=== PATIENT | male | born 1980 | race Caucasian/White ===

== ENCOUNTER 2020-01-18 09:09 | Emergency (ER) | payer BC, SELFPAY ==
[2020-01-18 09:22] VITALS: BP 119/76; PULSE 71; RESP 17; TEMP 36.7; O2SAT 96; BMI 25.0
--- NOTE | 2020-01-18 09:29 | W.ED.FEVER ---
HPI - Fever General: Chief Complaint: Fever Stated Complaint: FEVER L0IGIER, COVID NEG Time Seen by Provider: 01/18/20 09:18 History of Present Illness: HPI Narrative: Patient is a 39-year-old male who comes to the ED with fever. Patient was seen at [facility] last and they tested him for COVID-19 and he found out today and the results were negative. Patient says he has had of fever for the last 2 weeks. He has been taking his temperature at home and the highest it is gotten as 99.8F. He has not taken any Tylenol or ibuprofen to treat fever. For the past 3 days patient does describe having fatigue and lack of appetite. He has a chronic smoker's cough and says there is no acute change in his cough. he says he has had a runny nose and mild right ear pain, but denies sore throat, nausea, vomiting, abdominal pain, diarrhea, constipation, blood in the stool, dysuria and hematuria. Associated symptoms: Deny abdominal pain, flank pain, chills, chest pain, diarrhea, dysuria, headache(s), nasal congestion, nausea or vomiting Review of Systems Const: Reports: fever(s), change in appetite (decreased) and fatigue; Denies: chills Eyes: Denies: change in vision or eye discomfort ENMT: Reports: nasal discharge; Denies: throat pain, odynophagia or nasal congestion Card: Denies: chest pain, palpitations, edema, swelling of feet/ankles, dyspnea on exertion or orthopnea Resp: Denies: dyspnea, productive cough or non-productive cough GI: Denies: abdominal pain, nausea, vomiting, diarrhea, constipation or hematochezia : Denies: flank pain, difficulty urinating, dysuria or hematuria Musc: Denies: neck pain, back pain or extremity swelling Skin/Breast: Denies: rash or new lesions Neuro: Denies: headache(s), numbness in extremities or weakness in extremities PFS ED PFSH: Social History Smoking and tobacco status: current every day smoker Physical Exam Const: COMMON NORMALS: no acute distress, patient oriented x3, healthy appearing and alert GENERAL APPEARANCE: cooperative and comfortable HENMT: COMMON NORMALS: normocephalic HEAD & SCALP: normocephalic EXTERNAL AUDITORY CANAL: Abnormal EAC present EAC laterality: right Details: cerumen impaction, erythema, edema and EAC tenderness TYMPANIC MEMBRANE: TM abnormal TM laterality: bilateral bulging, erythematous and with fluid behind the TM (purulent fluid ) MOUTH: Normal oral and palatal mucosa present THROAT: posterior oropharynx normal and uvula midline Eye: COMMON NORMALS: Equal, round and reactive pupils present PUPIL: Yes Equal, round and reactive pupils present Neck/C-Spine: COMMON NORMALS: supple GENERAL: Yes normal visual inspection Resp: COMMON NORMALS: normal respiratory effort, No retractions, No use of accessory muscles and clear to auscultation bilaterally AUSCULTATION: clear to auscultation bilaterally Cardio: COMMON NORMALS: regular rate, regular rhythm, S1 normal heart sound present, S2 normal heart sound present, No gallops present (Cardio), No clicks present (Cardio), No murmurs present (Cardio) and Peripheral pulses 2+ throughout RATE: regular rate RHYTHM: regular rhythm HEART SOUNDS: S1 normal heart sound present and S2 normal heart sound present PERIPHERAL PULSES: Peripheral pulses 2+ throughout GI: COMMON NORMALS: Normal to inspection, nondistended, normoactive bowel sounds present, Soft to palpation, non-tender and no masses PALPATION: Yes Soft to palpation : COMMON NORMALS: Yes no CVA tenderness BLADDER/KIDNEY EXAM: Yes no CVA tenderness Back/Pelvis: COMMON NORMALS: no CVA tenderness Extremity: COMMON NORMALS: normal to inspection and no pedal edema Neuro: COMMON NORMALS: patient oriented x3 and moves all extremities SENSORIUM/ORIENTATION: Yes alert Skin: COMMON NORMALS: no rashes or lesions noted GENERAL SKIN EXAM: no rashes or lesions noted and dry skin Course Vital Signs: Vital signs: Vital Signs Temperature 98.1 F 01/18/20 09:22 Pulse Rate 67 01/18/20 14:10 Respiratory Rate 18 01/18/20 14:10 Blood Pressure 111/69 01/18/20 11:16 Pulse Oximetry 98 01/18/20 14:10 MDM - Fever MDM Narrative: Medical decision making narrative: Patient is a 3-year-old male who comes to the ED with fever, fatigue and loss of appetite. Fever started 2 weeks ago and patient recently tested negative for COVID-19. Physical exam normal except patient had extensive cerumen in both ears which obstructed viewing of the tympanic membrane. I had the nurse clean and irrigate patient's ears. After nurse cleaned ears I reexamined them and saw some external auditory canal erythema and tenderness in the right ear. Tympanic membranes had some erythema bulging and purulent fluid behind membrane. White blood cells 17.5. Chest x-ray was performed and showed no evidence of pneumonia. A CT of the abdomen was performed to rule out possible appendicitis due to loss of appetite and elevated white blood cell count. CT of the abdomen showed no acute findings, except some gallstones. Patient not showing any signs or symptoms of biliary colic and has no abdominal tenderness. Patient diagnosed with acute otitis media and otitis externa and sent home with a prescription for Augmentin and Cipro ear drops. Patient also stated he wanted a referral to a PCP. I placed a order with case management for patient to be set up with PCP. He can come back to the ED for reevaluation if symptoms worsen. Patient understood and agreed with plan. Lab Data: Attestation: I reviewed the patient's lab results. Labs: Lab Results 01/18/20 01/18/20 01/18/20 Range/Units 09:30 09:45 09:45 WBC 17.5 H (4.0-10.0) 10^3/ uL RBC 5.37 H (4.1-5.3) 10^6/u L Hgb 16.9 H (11.7-16.6) g/dL Hct 49.6 (42.0-52.0) % MCV 92.4 (80-94) fL MCH 31.5 (28.0-34.0) pg MCHC 34.1 (30.0-36.0) g/dL RDW 13.1 (12.1-15.1) % Plt Count 244 (130-400) 10^3/c mm MPV 9.7 (7.4-10.4) fL Neut % (Auto) 71.2 % Lymph % (Auto) 15.6 % [place] % (Auto) 8.8 % Eos % (Auto) 3.7 % Baso % (Auto) 0.4 % Neut # (Auto) 12.5 H (1.8-7.7) 10^3/u L Lymph # (Auto) 2.7 (0.8-4.8) 10^3/u L [place] # (Auto) 1.5 H (0.2-0.9) 10^3/u L Eos # (Auto) 0.7 (0.0-0.8) 10^3/u L Baso # (Auto) 0.1 (0.0-0.1) 10^3/u L Nucleated RBC % (a uto) 0 % Nucleated RBCs # 0.0 /100WBC Sodium 138 (136-145) mmol/L Potassium 4.2 (3.5-5.1) mmol/L Chloride 103 (98-107) mmol/L Carbon Dioxide 25 (22-29) mmol/L Anion Gap 14.2 (5-19) BUN 16 (6-20) mg/dL Creatinine 0.9 (0.7-1.2) mg/dL GFR Calculation 93.5 (90-130) mL/min Glucose 101 (65-115) mg/dL Calculated Osmolal ity 282 L (285-295) mOsm/k g Calcium 9.5 (8.5-10.5) mg/dL Total Bilirubin 0.2 (0.15-1.2) mg/dL AST 31 (0-40) U/L ALT 66 H (0-41) U/L Alkaline Phosphata se 84 (40-130) IU/L Total Protein 6.9 (6.6-8.7) g/dL Albumin 4.6 (3.5-5.2) g/dL Globulin 2.3 (1.3-4.6) g/dL Urine Color Yellow (Yellow) Urine Appearance Clear (CLEAR) Urine pH 5 (5-7) Ur Specific Gravit y 1.025 (1.005-1.030) Urine Protein Neg (Negative) Urine Glucose (UA) Norm (Normal) Urine Ketones Negative (Negative) Urine Blood Neg (Negative) Urine Nitrate Negative (Negative) Urine Bilirubin Neg (NEGATIVE) Urine Urobilinogen Norm (Negative) mg/dL Ur Leukocyte Danay ase Negative (Negative) Urine RBC None (0-2) /hpf Urine WBC 0-4 H (0-5) /hpf Ur Squamous Epith Cells None (0-5) Urine Bacteria Trace (NONE) Urine Mucus Trace Imaging Data^: CXR: Attestation: I personally reviewed and interpreted this imaging study as follows: Radiologist's impression: [facility] [address] [place] [address] XRay Report Signed Patient: Ernst Crum Jr Unit #: [id number] : 1980 Age/Sex: 39 / M ADM Date: 01/18/20 Loc: ER Room/Bed: Attending Dr: Ordering Provider/Ordering MD: Angel Lopez Date of Service: 01/18/20 Procedure(s): XR chest 1V portable [id number] Accession Number(s): [id number] Report Number: [id number] WS: [id number] XR chest 1V portable [id number] REASON FOR EXAM: fever FINDINGS: Hyper aerated lungs are seen with decreased vascularity. There is lung bates show no pneumonia, pleural effusion, pulmonary edema, or mass effect. The heart was not enlarged. The hilum and apices are normal. There is small cyst seen in the apex of the right lung. XR/XR chest 1V portable [id number] IMPRESSION: Chronic obstructive pulmonary disease Small cyst of the apex of the right lung. There was no evidence of pneumonia. Dictated By: Mehrdad Angela DO Signed By: Mehrdad Angela DO Signed Date/Time: 01/18/20949 DD/ 8 CT Abd/Pel: Attestation: I personally reviewed and interpreted this imaging study as follows: Radiologist's impression: [address] [place] [address] CT Scan Report Signed Patient: Ernst Crum Jr Unit #: [id number] : 1980 Age/Sex: 39 / M ADM Date: 01/18/20 Loc: ER Room/Bed: Attending Dr: Ordering Provider/Ordering MD: Angel Lopez Date of Service: 01/18/20 Procedure(s): CT abdomen pelvis w con* [id number] Accession Number(s): [id number] Report Number: [id number] WS: [id number] CT abdomen pelvis w con* [id number] REASON FOR EXAM: fever, loss of appetite and Elevated WBC IV CONTRAST ADMINISTERED: Omnipaque 300 95 mL TOTAL EXAM DLP: 915.[address] scans at [facility] use at least one of these dose optimization techniques: automated exposure control; mA and/or kV adjustment per patient size (includes targeted exams where dose is matched to clinical indication); or iterative reconstruction. FINDINGS: The lower lung bates were normal as well as the mediastinum. No hiatal hernias. The liver showed normal appearance no infiltrations. The gallbladder is contracted and appears to contain multiple stones. Comparisons were made to CT of January 30, 2010. The stomach, adrenal glands, pancreas, were all normal. Both kidneys show normal excretory changes no obstruction no masses. The appendix area was normal. The small bowel showed no ileus formation. The descending colon was normal. The urinary bladder show normal appearance of both ureters entering the bladder were normal bladder The gallbladder was normal in size and configuration is seen. The rectum was normal. No hernias are seen. The bony pelvis show no abnormalities. The lumbar spine show normal appearance. [place] no retroperitoneal lymphadenopathy is seen. CT/CT abdomen pelvis w con* [id number] IMPRESSION: Suspect multiple cholelithiasis. Dictated By: Mehrdad Angela DO Signed By: Mehrdad Angela DO Signed Date/Time: 01/18/20 1151 DD/ 1146 Discharge Plan Discharge Patient Disposition: Home, Self-Care Clinical Impression: Otitis media Qualifiers: Otitis media type: suppurative Chronicity: acute Laterality: bilateral Recurrence: non-recurrent Spontaneous tympanic membrane rupture: without spontaneous rupture Qualified Code(s): H66.003 - Acute suppurative otitis media without spontaneous rupture of ear drum, bilateral Otitis externa Qualifiers: Otitis externa type: other infective Chronicity: acute Laterality: right Qualified Code(s): H60.391 - Other infective otitis externa, right ear Condition: Stable Prescriptions: New amoxicillin-pot clavulanate 1,000-62.5 mg tablet extended release 12 hr 1 tab PO BID 10 Days Qty: 20 RF: 0 Cipro HC 0.2-1 % drops,suspension 3 drp EAR-BOTH BID 7 Days Qty: 10 RF: 0 No Action No Known Home Medications RF: 0 Discharge Orders: Discharge Order (Routine); Ordered 01/18/20 Ordered By: Angel Lopez Referrals: Pamela Longo APRN [Nurse Practitioner] - 01/19/20 9:00 am Leobardo Mckeon MD [Primary Care Provider] - Discharge Diet: Regular Discharge Activity: Resume usual activity Patient Instructions: Otitis Externa - Adult, Otitis Media - Adult Activity Restrictions/Additional Instructions: Case management should be contacting you in the next several days to set up an appointment with the PCP. Take full course of antibiotics as prescribed. For the antibiotic eardrops she will do 3 drops in the right ear twice daily for 7 days. Take Tylenol or ibuprofen for any pain or fevers. Drink plenty of fluids and stay hydrated. Discharge Date/Time: 01/18/20 14:11 Coding Level of Care Code ED Network Diagnostic Support Specialist for Jeremiah Fwd Exam Comprehensive
--- NOTE | 2020-01-18 09:30 | XR_ITS ---
WS: [id number] XR chest 1V portable [id number] REASON FOR EXAM: fever FINDINGS: Hyper aerated lungs are seen with decreased vascularity. There is lung bates show no pneumonia, pleural effusion, pulmonary edema, or mass effect. The heart was not enlarged. The hilum and apices are normal. There is small cyst seen in the apex of the right lung. XR/XR chest 1V portable [id number] IMPRESSION: Chronic obstructive pulmonary disease Small cyst of the apex of the right lung. There was no evidence of pneumonia.
[2020-01-18 09:56] VITALS: O2SAT 98
[2020-01-18 09:56] LABS: Basophils # 0.1 10^3/uL (0.0-0.1); Basophils % 0.4 %; Eosinophils # 0.7 10^3/uL (0.0-0.8); Eosinophils % 3.7 %; Hematocrit 49.6 % (42.0-52.0); Hemoglobin 16.9 g/dL (11.7-16.6); Lymphocytes # 2.7 10^3/uL (0.8-4.8); Lymphocytes % 15.6 %; Mean Corpuscular HGB Conc 34.1 g/dL (30.0-36.0); Mean Corpuscular Hemoglobin 31.5 pg (28.0-34.0); Mean Corpuscular Volume 92.4 fL (80-94); Mean Platelet Volume 9.7 fL (7.4-10.4); Monocytes # 1.5 10^3/uL (0.2-0.9); Monocytes % 8.8 %; Neutrophils # 12.5 10^3/uL (1.8-7.7); Neutrophils % 71.2 %; Nucleated Red Blood Cells % 0 %; Platelet Count 244 10^3/cmm (130-400); Red Blood Count 5.37 10^6/uL (4.1-5.3); Red Cell Distribution Width 13.1 % (12.1-15.1); White Blood Count 17.5 10^3/uL (4.0-10.0)
[2020-01-18 09:56] LABS: Bilirubin Urine Neg (NEGATIVE); Blood Urine Neg (Negative); Glucose Urine UA Norm (Normal); Ketones Urine Negative (Negative); Leukocyte Esterase Urine Negative (Negative); Nitrate Urine Negative (Negative); Protein Urine Neg (Negative); Specific Gravity, Urine 1.025 (1.005-1.030); Urine Appearance Clear (CLEAR); Urine Color Yellow (Yellow); Urobilinogen Urine Norm (Negative); pH Urine 5 (5-7)
[2020-01-18 09:57] LABS: Add Urine Culture? No; Bacteria Urine TRACE; Mucus Urine TRACE; WBC Urine 0-4 /hpf (0-5)
[2020-01-18 10:12] LABS: Alanine Aminotransferase 66 U/L (0-41); Albumin Level 4.6 g/dL (3.5-5.2); Alkaline Phosphatase 84 IU/L (40-130); Anion Gap 14.2 (5-19); Aspartate Amino Transferase 31 U/L (0-40); Blood Urea Nitrogen 16 mg/dL (6-20); Calcium 9.5 mg/dL (8.5-10.5); Carbon Dioxide 25 mmol/L (22-29); Chloride 103 mmol/L (98-107); Globulin 2.3 g/dL (1.3-4.6); Glomerular Filtration Rate 93.5 mL/min (90-130); Glucose 101 mg/dL (65-115); Osmolality Calculated 282 mOsm/kg (285-295); Potassium 4.2 mmol/L (3.5-5.1); Sodium 138 mmol/L (136-145); Total Bilirubin 0.2 mg/dL (0.15-1.2); Total Protein 6.9 g/dL (6.6-8.7)
--- NOTE | 2020-01-18 10:58 | CT_ITS ---
WS: [id number] CT abdomen pelvis w con* [id number] REASON FOR EXAM: fever, loss of appetite and Elevated WBC IV CONTRAST ADMINISTERED: Omnipaque 300 95 mL TOTAL EXAM DLP: 915.[address] scans at [facility] use at least one of these dose optimization techniques: automat ed exposure control; mA and/or kV adjustment per patient size (includes targeted exams where dose is matched to clinical indication); or iterative reconstruction. FINDINGS: The lower lung bates were normal as well as the mediastinum. No hiatal hernias. The liver showed normal appearance no infiltrations. The gallbladder is contracted and appears to contain multiple stones. Comparisons were made to CT of January 30, 2010. The stomach, adrenal glands, pancreas, were all normal. Both kidneys show normal excretory changes no obstruction no masses. The appendix area was normal. The small bowel showed no ileus formation. The descending colon was normal. The urinary bladder show normal appearance of both ureters entering the bladder were normal bladder The gallbladder was normal in size and configuration is seen. The rectum was normal. No hernias are seen. The bony pelvis show no abnormalities. The lumbar spine show normal appearance. [place] no retroperitoneal lymphadenopathy is seen. CT/CT abdomen pelvis w con* [id number] IMPRESSION: Suspect multiple cholelithiasis.
[2020-01-18 11:16] VITALS: BP 111/69; PULSE 61; RESP 15; O2SAT 97
[2020-01-18] MEDS: sodium chloride 0.9% 1,000 ML 999 ML IV (11:16)
[2020-01-18] MEDS: iohexol 300 mg/mL 100 mL Btl IV (11:32)
--- NOTE | 2020-01-18 13:51 | PC.NURSE ---
patients ears irrigated and cleaned out,patient tolerated it with some resistance
--- NOTE | 2020-01-18 13:57 | DCPLANNER ---
manager of administration was asked to speak with patient about getting established with a primary care physician. manager of administration spoke with patient, told patient that sample case porter could get patient established with SPORTS TEACHER, Rozina Longo at [facility]. manager of administration called the clinic, spoke with Talia, a follow up appointment was scheduled for Sunday, January 19, 2020 at 9:00 with SPORTS TEACHER Rozina Longo. manager of administration informed patient and ED physician of the scheduled appointment.
[2020-01-18] MEDS: amoxicillin-clav 875-125 mg Tablet 1 TAB PO (13:58)
[2020-01-18 14:10] VITALS: PULSE 67; RESP 18; O2SAT 98
--- NOTE | 2020-01-29 14:08 | DCPLANNER ---
Patient had an appointment scheduled for 01.19.20 with DYE HOUSE HELPER, Rozina Longo. Patient did attend appointment.
== END 2020-01-18 14:11 | disposition home or self-care (01) ==
PROVIDERS: Emergency Provider Physician Assistant; PCP Urology
DX: H66.003 Acute suppurative otitis media without spontaneous rupture of ear drum, bilateral (principal); H60.391 Other infective otitis externa, right ear; F17.210 Nicotine dependence, cigarettes, uncomplicated
CPT/HCPCS: 12345; 36415; 71045; 74177; 80053; 81001; 85025; 87040; 96360; 99283; 99284; J7030; Q9967

== ENCOUNTER 2025-02-16 07:16 | Emergency (ER) | payer SELFPAY ==
[2025-02-16 07:26] VITALS: BP 142/89; PULSE 72; RESP 18; TEMP 36.7; O2SAT 96; BMI 28.7
--- OUTSIDE RECORDS SUMMARY | 2025-02-16 07:26 | XMS_ITS | Encounter Summary ---
Author Organization [facility] Address [address] [place] [address] Care Team Providers Care Outbound Telemarketing Representative Name Role Phone Rolando Antoine MD Primary Care Provider [phone] [phone] Encounter Details Date Type Department Care Team (Late st Contact Info) Description 03/06/2005 Outpatient Historical [facility] [address] 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 Gender Identity Not on file Sexual Orientation Not on file documented as of this encounter Plan of Treatment Not on file documented as of this encounter Visit Diagnoses Not on filedocumented in this encounter Additional Health Concerns Infection Onset Date Last Indicated Resolved Time R/O COVID-19 01/29/2020 01/29/2020 01/31/2020 2:31 AM CDT documented as of this encounter Care Teams Outbound Telemarketing Representative Relationship Specialty Start Date End Date Rolando Antoine MD [address] [facility] [address] [place] [id number] PCP - General Family Practice 01/29/20 documented as of this encounter
--- OUTSIDE RECORDS SUMMARY | 2025-02-16 07:26 | XMS_ITS | Encounter Summary ---
[facility] Organization [facility] Address [address] [place] [address] Care Team Providers Care Jackerman Name Role Phone Rolando Antoine MD Primary Care Provider [phone] Encounter Details Date Type Department Care Team (Latest Contact Info) Description 12/26/2004 Outpatient Historical [facility] [address] 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 Gender Identity Not on file Sexual Orientation Not on file documented as of this encounter Plan of Treatment Not on file documented as of this encounter Visit Diagnoses Diagnosis Pain in joint, pelvic region and thigh- Primary documented in this encounter Additional Health Concerns Infection Onset Date Last Indicated Resolved Time R/O COVID-19 01/29/2020 01/29/2020 01/31/2020 2:31 AM CDT documented as of this encounter Care Teams Jackerman Relationship Specialty Start Date End Date Rolando Antoine MD [address] [facility] [address] [place] [address] PCP - General Family Practice 01/29/20 documented as of this encounter
--- OUTSIDE RECORDS SUMMARY | 2025-02-16 07:26 | XMS_ITS | Clinical Summary ---
Author Organization [facility] Address [address] [place] [address] Care Team Providers Care Associate Dean Of Women Name Role Phone Rolando Antoine MD Primary Care Provider [phone] [phone] Allergies Active Allergy Reactions Criticality Noted Date Comments Iodine Nausea and Vomiting Low 01/28/2020 Morphine Other (See Comments) 01/28/2020 Agitation, mood swings. Medications albuterol sulfate 90 mcg/Actuation inhalerIndicati ons:Simple chronic bronchitis (CMS/HCC) Take 2 Puffs by inhalation every 6 hours as needed for Shortness of Breath or Wheezing. 6.7 Gram 11 1 Active omeprazole (PriLOSEC) 40 mg Capsule, Delayed Release(E.C.) Take 1 Capsule (40 mg) by mouth daily. 30 Capsule 11 1 Active promethazine (PHENERGAN) 25 mg tablet Take 0.5-1 Tablets (12.5-25 mg) by mouth every 6 hours as needed for Nausea/Emesis. 30 Tablet 11 1 Active sucralfate (CARAFATE) 1 gram tablet Take 1 Tablet (1 Gram) by mouth 2 times daily. 60 Tablet 11 1 Active Active Problems Problem Noted Date Diagnosed Date Cyclical vomiting 04/13/2021 Esophagitis 02/10/2021 Chronic periodontal disease 11/08/2020 Calculus of gallbladder with out cholecystitis without obstruction 11/08/2020 Opacity of lung on imaging study 11/08/2020 Simple chronic bronchitis 09/13/2020 Fever of unknown origin (FUO) 03/31/2020 Tobacco use 03/21/2020 Resolved Problems Problem Noted Date Diagnosed Date Resolved Date Abnormal chest CT 03/31/2020 11/08/2020 Family History Medical History Relation Name Comments No Known Problems Father Lung Cancer Mother Colon Cancer Neg Hx Relation Name Status Comments Father Mother Social History Tobacco Use Types Packs/Day Years Used Date Smoking Tobacco: Every Day Cigarettes Smokeless Tobacco: Never Alcohol Use Standard Drinks/Week Comments Never 0 (1 standard drink = 0.6 oz pur e alcohol) Sex and Gender Information Value Date Recorded Sex Assigned at Not on file Legal Sex Male 3:20 PM [employer] Gender Identity Not on file Sexual Orientation Not on file Last Filed Vital Signs Vital Sign Reading Time Taken Comments Blood Pressure 124/74 04/13/2021 8:37 AM CDT Pulse 96 04/13/2021 8:37 AM CDT Temperature 37.1 C (98.8 F) 04/13/2021 8:37 AM CDT Respiratory Rate 16 04/13/2021 8:37 AM CDT Oxygen Saturation 94% 04/13/2021 8:37 AM CDT Inhaled Oxygen Concentration - - Weight 99.3 kg (219 lb) 04/13/2021 8:37 AM CDT Height 190.5 cm (6' 3 ) 04/13/2021 8:37 AM CDT Body Mass Index 27.37 04/13/2021 8:37 AM CDT Plan of Treatment Health Maintenance Due Date Last Done Comments DTAP/TDAP/TD VACCINES (1 - Tdap) 1998 HEPATITIS B VACCINES (1 of 3 - 19+ 3-dose series) 1998 COLORECTAL SCREENING 2024 Colorectal Cancer Screening 2024 FIT-DNA Q 3 years 2024 FIT/FOBT Q 1 year 2024 Flex Sig/CT Colonography Q 5 years 2024 INFLUENZA VACCINE (#1) 2025 , 09/13/2020 HPV VACCINES Aged Out No longer eligi ble based on patient's age to complete this topic Advance Directives For more information, please contact: [phone] * Full Code (Latest Code Status on File) Date Activated Date Inactivated Comments 03/07/2021 12:19 PM 03/07/2021 3:33 PM Care Teams Associate Dean Of Women Relationship Specialty Start Date End Date Rolando Antoine MD [address] [address] PCP - General Family Practice 01/29/20
--- OUTSIDE RECORDS SUMMARY | 2025-02-16 07:26 | XMS_ITS | Encounter Summary ---
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 Gender Identity Not on file Sexual Orientation Not on file documented as of this encounter Plan of Treatment Not on file documented as of this encounter Visit Diagnoses Not on filedocumented in this encounter Additional Health Concerns Infection Onset Date Last Indicated Resolved Time R/O COVID-19 01/29/2020 01/29/2020 01/31/2020 2:31 AM CDT documented as of this encounter Care Teams Tamping Machine Operator Road Forms Relationship Specialty Start Date End Date Rolando Antoine MD [address] [facility] [address] [place] [address] PCP - General Family Practice 01/29/20 documented as of this encounter
--- OUTSIDE RECORDS SUMMARY | 2025-02-16 07:26 | XMS_ITS | Clinical Summary ---
Author Organization [facility] [place] Address [address] [place] [address] Care Team Providers Care Medical Record Clerk Name Role Phone Rolando Antoine MD Primary Care Provider [phone] Allergies Active Allergy Reactions Criticality Noted Date Comments Iodine Nausea and Vomiting Low 01/28/2020 Morphine Other (See Comments) 01/28/2020 Agitation, mood swings. Medications albuterol HFA 90 mcg inhalerIndicati ons:Simple chronic bronchitis (CMS/HCC) Take 2 Puffs by inhalation every 6 hours as needed for Shortness of Breath. Please dispense from discount list 6.7 Gram 1 1 Active prochlorperazin e maleate (COMPAZINE) 10 mg tablet Take 1 Tablet (10 mg) by mouth every 6 hours as needed for Nausea or Emesis. 15 Tablet 1 Active haloperidoL (HALDOL) 5 mg tablet TAKE 1 2 1 TABLET BY MOUTH NEEDED FOR NAUSEA NOT TO EXCEED EVERY 8 HOURS FOR 7 DAYS 1 Active ondansetron (ZOFRAN) 4 mg Tablet TAKE 1 TABLET BY MOUTH EVERY 8 HOURS NEEDED FOR NAUSEA 1 Active omeprazole (PriLOSEC) 40 mg Capsule, Delayed Release(E.C.) Take 1 Capsule (40 mg) by mouth 2 times daily before meals. 60 Capsule 2 1 Active Active Problems Problem Noted Date Diagnosed Date Chronic periodontal disease 11/08/2020 Opacity of lung on imaging study 11/08/2020 Calculus of gallbladder with out cholecystitis without obstruction 11/08/2020 Simple chronic bronchitis 09/13/2020 Fever of [...] Used Date Smoking Tobacco: Every Day Cigarettes 1.5 20 Smokeless Tobacco: Never Tobacco Cessation:Ready to Q uit: Yes; Counseling Given: Yes Alcohol Use Standard Drinks/Week Comments Never 0 (1 standard drink = 0.6 oz pur e alcohol) Sex and Gender Information Value Date Recorded Sex Assigned at Not on file Legal Sex Male 5:04 AM RN INTENS[facility] Gender Identity Not on file Sexual Orientation Not on file Last Filed Vital Signs Vital Sign Reading Time Taken Comments Blood Pressure 124/64 01/06/2021 9:38 AM CDT Pulse 93 01/06/2021 9:38 AM CDT Temperature 36.9 C (98.4 F) 01/06/2021 9:38 AM CDT Respiratory Rate 23 01/06/2021 9:38 AM CDT Oxygen Saturation 97% 01/06/2021 9:38 AM CDT Inhaled Oxygen Concentration - - Weight 98.9 kg (218 lb) 01/06/2021 9:38 AM CDT Height 190.5 cm (6' 3 ) 01/06/2021 9:38 AM CDT Body Mass Index 27.25 01/06/2021 9:38 AM CDT Plan of Treatment Health Maintenance [...] Advance Directives For more information, please contact: [phone] * Full Code (Latest Code Status on File) Date Activated Date Inactivated Comments 12/29/2020 11:53 AM 12/29/2020 3:37 PM Care Teams Medical Record Clerk Relationship Specialty Start Date End Date Rolando Antoine MD [address] [address] PCP - General Family Practice 01/29/20
--- NOTE | 2025-02-16 07:31 | XRR_ITS ---
PROCEDURE INFORMATION: Exam: XR Left Knee Exam date and time: 02/16/2025 7:42 AM Age: 44 years old Clinical indication: Injury or trauma; Other: Hit knee against concrete block; Blunt trauma; Left; Injury details: Pain, working and concrete block hit knee; Additional info: Pain/trauma TECHNIQUE: Imaging protocol: Radiologic exam of the left knee. Views: 3 views. COMPARISON: No relevant prior studies available. FINDINGS: Bones/joints: Normal. Soft tissues: Normal. XR/XR knee LT 3V* [id number] IMPRESSION: No acute osseous findings.
--- NOTE | 2025-02-16 07:33 | ED_ITS ---
HPI - Extremity Problem General: Chief complaint: Extremity Injury, Lower Stated complaint: lt knee inj Time Seen by Provider: 02/16/25 07:30 History of Present Illness: 44-year-old male presents emergency room complaining of left knee injury he is working at a local [employer] company he was briefly distracted when an unknown dog came and bit him in the heel when that happened his leg was pinned between 2 cement blocks he has some bruising and some discomfort. He has been able to partially bear weight. Denies any other injury Associated symptoms: Deny chest pain or rash Related Data Previous Rx's ?Medication ?Instructions ?Recorded carbamide peroxide 6.5 % ear drops 5 drop otic (ear) . HS 4 days #15 mL 01/19/20 (Debrox) diclofenac sodium 75 mg 75 mg PO Q12H PRN pain #20 t abs 02/16/25 tablet,delayed release Allergies Allergy/AdvReac Type Severity Reaction Status Date / Time morphine Allergy ADR-Agitate Verified 01/19/20 09:26 d Review of Systems Card: Denies: chest pain Resp: Denies: dyspnea GI: Denies: abdominal pain Musc: Reports: joint pain; Denies: neck pain or back pain Skin/Breast: Denies: rash PFSH ED PFSH: Family History Mother Rheumatic fever Lung disease Cancer Social History Smoking and tobacco/nicotine status: current every day tobacco/nicotine user Alcohol intake: current Alcohol intake frequency: holidays/special occasions only Substance/Drug Use: current Marital status: Life Partner Current occupational status: employed Physical Exam Const: COMMON NORMALS: no acute distress GENERAL APPEARANCE: cooperative and comfortable ORIENTATION/CONSCIOUSNESS: Yes awake, Yes oriented to person, Yes oriented to place and Yes oriented to time HENMT: COMMON NORMALS: normocephalic, atraumatic and hearing grossly normal bilaterally HEAD & SCALP: normocephalic and atraumatic Resp: COMMON NORMALS: normal respiratory effort, No retractions, No use of accessory muscles and clear to auscultation bilaterally AUSCULTATION: clear to auscultation bilaterally Cardio: COMMON NORMALS: regular rate, regular rhythm and No murmurs present (Cardio) RATE: regular rate RHYTHM: regular rhythm Extremity: OTHER: Moderate ecchymosis around the left knee joint laterally and medially no lacerations. Not able to test ligamentous stability due to discomfort. Localized swelling no apparent joint effusion Neuro: SENSORIUM/ORIENTATION: Yes oriented to person, Yes oriented to place and Yes oriented to time Skin: COMMON NORMALS: no rashes or lesions noted GENERAL SKIN EXAM: no rashes or lesions noted Course Vital Signs: Vital signs: Vital Signs Temperature 98.1 F 02/16/25 07:26 Pulse Rate 72 02/16/25 07:26 Respiratory Rate 18 02/16/25 07:26 Blood Pressure 142/89 02/16/25 07:26 Pulse Oximetry 96 02/16/25 07:26 Oxygen Delivery Me thod Room Air 02/16/25 07:26 MDM - Extremity (Nontraumatic) Medical Decision Making Patient was bitten by an unknown dog rabies vaccination initiated encourage patient to complete. She is very little markings on the skin I do not believe antibiotics are needed at this time. X-ray of the left knee where his knee was crushed does not show any acute fractures he has a fair amount of bruising suspect this is all soft tissue injury from his description I do not believe he has a ligamentous injury although it is difficult to assess due to the continued acute discomfort over of the soft tissue swelling. Start him on anti- inflammatories he can use ice as needed placed in a knee immobilizer and crutches and referred to orthopedics. Patient refused rabies immunoglobulin and vaccine despite encouragement to complete course. Imaging Data Xray Ortho: My impression: Left knee 3 views. No evidence of acute fracture no foreign body no significant joint effusion noted. Normal alignment. Mild soft tissue swelling XR interpretation done by ED provider, pending radiology final review Discharge Plan Discharge Patient Disposition: Home Clinical Impression: Need for post exposure prophylaxis for rabies Crushing injury of knee, left Qualifiers: Encounter type: initial encounter Qualified Code(s): S87.02XA - Crushing injury of left knee, initial encounter Condition: Stable Prescriptions: New diclofenac sodium 75 mg tablet,delayed release (DR/EC) 75 mg PO Q12H PRN (Reason: pain) Qty: 20 0RF No Action carbamide peroxide [Debrox] 6.5 % drops 5 drop EAR-BOTH .HS 4 Days Qty: 15 0RF Discharge Orders: Discharge ED (Routine); Ordered 02/16/25 Ordered By: Winston Rothman Discharge Diet: Usual diet Discharge Activity: Limit activity as instructed Patient Instructions: Opioid Safety, Pain Management, Patient Portal & Lupis Instructions Activity Restrictions/Additional Instructions: Thank you for choosing [facility] for your healthcare needs today. It is very important that you follow up as instructed or that you return to the Emergency Department should you have concerns or if your condition changes or worsens in any way. You are seen in the emergency room after being bitten by a dog and having your left knee crushed by cement blocks. X-ray of your knee was normal. We do recommend a series of rabies vaccinations because of recent number of positive rabies testings in this area as well as the fact this dog is unknown. Will refer to orthopedics for further evaluation of your knee. Recommend use crutches and a knee immobilizer until you are seen by orthopedics Print Language: Singaporean Coding Level of Care Code ED Scale Shooter for Jeremiah Parsons
[2025-02-16] MEDS: tetanus-dipt-pertussis 0.5 mL SDV IM (08:20)
[2025-02-16 08:35] VITALS: BP 117/62; PULSE 71; O2SAT 97
--- NOTE | 2025-02-18 07:29 | DCPLANNER ---
messaged ortho for er f/u
== END 2025-02-16 08:35 | disposition home or self-care (01) ==
PROVIDERS: Emergency Provider Family Medicine
DX: S87.02XA Crushing injury of left knee, initial encounter (principal); S90.8 Other superficial injuries of foot; W23.1XXA Caught, crushed, jammed, or pinched between stationary objects, initial encounter; Y99.0 Civilian activity done for income or pay; W54.0XXA Bitten by dog, initial encounter
CPT/HCPCS: 73562; 90471; 90715; 99283

== ENCOUNTER → 2025-02-19 08:33 | Outpatient (BNVA) | payer SELFPAY | PROVIDERS: Visit Provider Orthopaedic Surgery | DX: S87.02XA Crushing injury of left knee, initial encounter (principal); W23.1XXA Caught, crushed, jammed, or pinched between stationary objects, initial encounter; Y99.0 Civilian activity done for income or pay | CPT/HCPCS: 73562 ==

== ENCOUNTER 2025-03-04 06:59 | Outpatient (CLI) | payer SELFPAY ==
--- NOTE | 2025-03-04 07:15 | MR_ITS ---
WS: [id number] MRI LEFT KNEE HISTORY: Left knee pain COMPARISON: Radiograph 02/19/2025 Anterior cruciate ligament: Intact. Posterior cruciate ligament: Intact. Medial collateral ligament: MCL is intact but there is edema along the external surface of the MCL. Posterior lateral corner structures: Popliteus tendon and the fibular ligament are intact. There is a large amount of soft tissue injury along the lateral knee beginning above the femoral metaphysis. There is edema and blood in the soft tissues and the biceps femoris muscle. The tendon of the biceps femoris is partially torn. There is a partial tear also within the biceps femoris muscle itself along with edema involving a large portion of the muscle. There are complex fluid collections lateral to the iliotibial band. This collection extends over a length of 4.2 cm x 1.0 cm. There is an additional subcutaneous edema laterally. There is a small amount of edema along the medial knee soft tissues. Medial menisci: Intact. Normal signal, size and shape. Lateral meniscus: Intact. Normal signal, size and shape. Extensor mechanism: Distal quadriceps tendon and patellar tendons are intact. Fluid and soft tissue: Small suprapatellar joint effusion. No Norton's cyst. Osseous and articular structures: Patellofemoral compartment: Focal edema within the patellar eminence. This is probably degenerative in etiology and related to loss of cartilage. No fracture. Medial compartment: Mild narrowing of the medial compartment. There is extensive marrow edema in the distal femur, greatest within the femoral condyle but also extending into the metaphysis. Smaller amount of edema along the tibial plateau. Lateral compartment: Mild narrowing of the lateral compartment. Minimal fissuring of the cartilage. There is extensive marrow edema involving the femoral condyle and the femoral metaphysis and the tibial plateau. There is a very small osteochondral fracture involving the posterior femoral condyle. There is associated marrow edema and findings suspicious for small avulsion fracture. MR/MR knee LT wo con* [id number] IMPRESSION: 1. Extensive soft tissue edema surrounding the knee, greatest along the latera l knee and extending both deep and superficial to the iliotibial band. Changes of edema and hematoma. 2. Extensive marrow edema bilaterally in the femoral condyles and femoral meta physis and also along the tibial plateau. 3. Small avulsion fracture from the posterior lateral femoral condyle. 4. Normal ACL. 5. Significant edema in the biceps femoris muscle with a partial tear of the t endon and the muscle. Largest area of injury to the biceps femoris muscle is as sociated with the avulsion fracture from the posterior lateral femoral condyle.
== END 2025-03-04 07:00 | disposition home or self-care (01) ==
LOC: RAD 07:00
PROVIDERS: Visit Provider Orthopaedic Surgery
DX: S72.422A Displaced fracture of lateral condyle of left femur, initial encounter for closed fracture (principal); X58.XXXA Exposure to other specified factors, initial encounter
CPT/HCPCS: 73721

== ENCOUNTER 2025-04-09 07:40 | Outpatient (CLI) | payer OTHER, SELFPAY ==
--- NOTE | 2025-04-09 07:48 | XR_ITS ---
WS: [id number] Left shoulder, 2 views, 04/09/2025 Clinical Data: left shoulder pain Comparison: None. Findings: No fractures or dislocations are seen. The AC joint is normal. The adjacent left clavicle, left scapula and ribs are normal. The soft tissues are unremarkable. XR/XR shoulder LT min 2V* [id number] Impression: Negative left shoulder.
[2025-04-09 07:58] LABS: Hematocrit 46.0 % (37-53); Hemoglobin 15.70 g/dL (11.27-16.99); Mean Corpuscular HGB Conc 34.1 g/dL (30-55); Mean Corpuscular Hemoglobin 30.8 pg (27-33); Mean Corpuscular Volume 90.4 fl (82-101); Nucleated Red Blood Cells % 0 %; Platelet Count 236 10^3/cmm (157-399); Red Blood Count 5.09 10^6/uL (3.85-5.65); White Blood Count 10.30 10^3/uL (3.29-11.43)
[2025-04-09 08:20] LABS: Alanine Aminotransferase 44 U/L (0-41); Albumin Level 4.1 g/dL (3.5-5.2); Alkaline Phosphatase 92 U/L (40-130); Anion Gap 15.4 (5-19); Aspartate Amino Transferase 20 U/L (0-40); Blood Urea Nitrogen 16 mg/dL (6-20); Calcium 8.8 mg/dL (8.5-10.5); Carbon Dioxide 23 mmol/L (22-29); Chloride 104 mmol/L (98-107); Cholesterol 237 mg/dL (0-200); Globulin 2.6 g/dL (1.3-4.6); Glucose 95 mg/dL (65-115); HDL Cholesterol 37 mg/dL (60-100); Osmolality Calculated 287 mOsm/kg (285-295); Potassium 4.4 mmol/L (3.5-5.1); Sodium 138 mmol/L (136-145); Total Protein 6.7 g/dL (6.6-8.7); Triglycerides 315 mg/dL (0-150)
== END 2025-04-09 07:41 | disposition home or self-care (01) ==
DX: M25.512 Pain in left shoulder (principal); Z76.89 Persons encountering health services in other specified circumstances
CPT/HCPCS: 73030; 80053; 80061; 85025

== ENCOUNTER 2025-07-09 07:54 | Outpatient (CLI) | payer OTHER, SELFPAY | END 2025-07-09 07:55 | disposition home or self-care (01) | LOC: RAD 07:56 | PROVIDERS: Visit Provider Orthopaedic Surgery | DX: M25.562 Pain in left knee (principal) | CPT/HCPCS: 73721; 73723 ==